=== PATIENT | female | born 1955 | race Caucasian/White ===

== ENCOUNTER → 2017-05-12 | Outpatient (CLI) | payer OTHER ==
[~2017-05-12] MED LIST: ALLEGRA30 MG/5 ML PO; ARAVA20 MG PO; CELEBREX 200 M200 M1 PO; CLONIDINE0.1 PO; CYMBALTA60 MG PO; FLEXERIL PO; HYDROCHLOROTHIA50 MG PO; HYDROXYCHLOROQ200 M1 PO; MAGNESIUM OXID200 MG PO; NEURONTIN 300300 M1 PO; NEXIUM40 MG PO; NITROGLYCERIN0.4 MG SL; OMEPRAZOLE20 M2 PO; PHENAZOPYRIDIN200 M2 PO; POTASSIUM20 PO; PREDNISONE 5 MG5 M1 PO; RELPAX40 MG PO; TRANDOLAPRIL4 MG PO; VITAMIN D 5050000 I1 PO
== END ==
LOC: ULTRA 10:02
DX: M79.605 Pain in left leg (principal); M79.89 Other specified soft tissue disorders

== ENCOUNTER → 2017-09-19 | Outpatient (CLI) | payer OTHER | LOC: CAT 15:05 | DX: M51.26 Other intervertebral disc displacement, lumbar region (principal); M54.16 Radiculopathy, lumbar region ==

== ENCOUNTER → 2017-12-14 | Outpatient (CLI) | payer OTHER | LOC: RAD 16:46 | DX: R06.00 Dyspnea, unspecified (principal); Z88.5 Allergy status to narcotic agent; Z88.8 Allergy status to other drugs, medicaments and biological substances ==

== ENCOUNTER → 2017-12-20 | Outpatient (CLI) | payer OTHER ==
--- NOTE | ~2017-12-20 | 2DMMODE ---
[facility] [employer] [place] [address] 2 D/M-MODE ECHOCARDIOGRAM Name: LANA JERONIMO LATHA Room #: REG [facility]#: [id number] Admission: 12/20/17 Attend Phys: Kimberly Shafer Discharge: Date of : 57 Date of Service: 12/20/17 1010 Report #: [id number] THIS REPORT FOR: //name// APPROVED REPORT Study performed: 12/20/2017 09:08:20 EXAM: Comprehensive 2D, Doppler, and color-flow Echocardiogram Patient Location: Out-Patient Status: routine BSA: 2.15 HR: 75 bpm BP: 154/93 mmHg Rhythm: NSR Other Information Study Quality: Adequate Indications Dyspnea. Hx:HTN 2D Dimensions RVDd: 33.98 mm LVEF(%): 63.56 (>50%) IVSd: 11.47 (7-11mm) LVOT Diam: 21.00 (18-24mm) LVDd: 43.97 mm PWd: 11.25 (7-11mm) Ascending Ao: 33.08 (22-36mm) LVDs: 28.89 (25-40mm) Aortic Root: 33.33 mm Ramos's LVEF: 63.56 % Volumes Left Atrial Volume (Systole) Single Plane 4CH: 32.50 mL Single Plane 2CH: 38.22 mL LA ESV Index: 18.00 mL/m2 Aortic Valve AoV Peak Carlton.: 1.68 m/s AO Peak Gr.: 11.29 mmHg LVOT Max P.24 mmHg LVOT Max V: 1.25 m/s LENNIE Vmax: 2.57 cm2 Mitral Valve E/A Ratio: 0.9 MV Decel. Time: 228.09 ms [facility] [address] [place] [address] 2 D/M-MODE ECHOCARDIOGRAM Name: PHANILANA LATHA Room #: [facility]#: [id number] Admission: 12/20/17 Attend Phys: Kimberly Shafer Discharge: Date of : 57 Date of Service: 12/20/17 1010 Report #: [id number] MV E Max Carlton.: 0.86 m/s MV A Carlton.: 1.01 m/s MV PHT: 66.14 ms IVRT: 79.58 ms Pulmonary Valve PV Peak Carlton.: 1.14 m/s PV Peak Gr.: 5.17 mmHg Pulmonary Vein P Vein S: 0.70 m/s P Vein A: 0.33 m/s P Vein D: 0.49 m/s P Vein A Dur.: 93.4 msec P Vein S/D Ratio: 1.43 Tricuspid Valve TR Peak Carlton.: 2.22 m/s RAP Estimate: 5.00 mmHg TR Peak Gr.: 19.70 mmHg PA Pressure: 25.00 mmHg Left Ventricle The left ventricle is normal size. There is normal LV segmental wall motion. Borderline concentric left ventricular hypertrophy. Left ventricular systolic function is normal. LVEF is 60%. Mild diastolic dysfunction is present (impaired relaxation pattern). Right Ventricle The right ventricle is normal size. The right ventricular systolic function is normal. Atria The left atrium size is normal. The right atrium size is normal. Aortic Valve The aortic valve is normal in structure. No aortic regurgitation is present. There is no aortic valvular stenosis. Mitral Valve The mitral valve is normal in structure. Trace to mild mitral regurgitation. Tricuspid Valve The tricuspid valve is normal in structure. Trace tricuspid regurgitation. Estimated PAP is 25mmHg. Pulmonic Valve The pulmonary valve is normal in structure. There is no pulmonic [address] [address] 2 D/M-MODE ECHOCARDIOGRAM Name: LANA JERONIMO Room #: REG CL [facility]#: [id number] Admission: 12/20/17 Attend Phys: Kimberly Shafer Discharge: Date of : 57 Date of Service: 12/20/17 1010 Report #: [id number] valvular regurgitation. Great Vessels The aortic root is normal in size. The ascending aorta is normal in size. IVC is normal in size and collapses >50% with inspiration. Pericardium There is no pericardial effusion. <Conclusion> Left ventricular systolic function is normal. Normal LV segmental wall motion. EF 60%. Mild diastolic dysfunction The aortic valve is normal in structure. No aortic regurgitation or stenosis The mitral valve is normal in structure. Trace to mild mitral regurgitation. Trace tricuspid regurgitation. Estimated pulmonary artery pressure of 25mmHg. There is no pericardial effusion. <ELECTRONICALLY SIGNED> By: Dimitrios Bejarano MD, FACC 12/20/17 1010 1010 1010 Dimitrios Bejarano MD, FACC /INF
== END ==
LOC: CV 08:47
DX: I11.0 Hypertensive heart disease with heart failure (principal); I50.30 Unspecified diastolic (congestive) heart failure

== ENCOUNTER → 2018-02-09 | Outpatient (CLI) | payer OTHER | LOC: HYPER 06:46 | DX: L89.893 Pressure ulcer of other site, stage 3 (principal); I10 Essential (primary) hypertension; G60.3 Idiopathic progressive neuropathy; L84 Corns and callosities; K21.9 Gastro-esophageal reflux disease without esophagitis; M19.90 Unspecified osteoarthritis, unspecified site; M06.9 Rheumatoid arthritis, unspecified; J45.909 Unspecified asthma, uncomplicated; Z87.01 Personal history of pneumonia (recurrent) ==

== ENCOUNTER → 2018-02-15 | Outpatient (CLI) | payer OTHER | LOC: HYPER 07:07 | DX: L89.893 Pressure ulcer of other site, stage 3 (principal); I10 Essential (primary) hypertension; L84 Corns and callosities; K21.9 Gastro-esophageal reflux disease without esophagitis; M19.90 Unspecified osteoarthritis, unspecified site; M06.9 Rheumatoid arthritis, unspecified; G60.3 Idiopathic progressive neuropathy; J45.909 Unspecified asthma, uncomplicated; Z87.01 Personal history of pneumonia (recurrent); Z68.41 Body mass index [BMI] 40.0-44.9, adult ==

== ENCOUNTER → 2018-03-02 | Outpatient (CLI) | payer OTHER | LOC: HYPER 06:51 | DX: L89.893 Pressure ulcer of other site, stage 3 (principal); G60.3 Idiopathic progressive neuropathy; J45.909 Unspecified asthma, uncomplicated; I10 Essential (primary) hypertension; K21.9 Gastro-esophageal reflux disease without esophagitis; M19.90 Unspecified osteoarthritis, unspecified site; M06.9 Rheumatoid arthritis, unspecified ==

== ENCOUNTER → 2018-11-23 | Outpatient (CLI) | payer OTHER | LOC: CAT 11:59 | DX: K76.9 Liver disease, unspecified (principal); R19.5 Other fecal abnormalities; Z90.710 Acquired absence of both cervix and uterus ==